=== PATIENT | male | born 1930 | race Caucasian/White ===

== ENCOUNTER 2017-02-14 18:44 | Emergency (ER) | payer MEDICARE, OTHER ==
[~2017-02-14] VITALS: Ht 15270 cm; Wt 74.8 kg
[2017-02-14 19:14] LABS: HEMATOCRIT 45.4 % (42.0-52.0); HEMOGLOBIN 15.1 g/dl (14.0-18.0); MEAN CELL VOLUME 95.8 fl (80.0-94.0); MEAN CORPUSCULAR HGB 31.9 pg (27.0-31.0); MEAN CORPUSCULAR HGB CONC 33.3 g/dl (33.0-37.0); MEAN PLATELET VOLUME 11.4 fl (9.6-12.3); PLATELET COUNT AUTOMATED 135 10*3/uL (130-400); RED BLOOD COUNT 4.74 10*6/uL (4.50-5.90); RED CELL DISTRI WIDTH 13.1 % (0-14.5)
[2017-02-14 19:28] LABS: OXYHEMOGLOBIN 87.1 % (85.0-98.0); TOTAL HGB 15.5 G/DL (13.5-18.0)
[2017-02-14 19:30] LABS: POTASSIUM 3.9 mmol/L (3.5-5.1)
[2017-02-14 19:35] LABS: TROPONIN I 3.26 ng/ml (<0.045)
[2017-02-14 19:47] LABS: LYMPHOCYTE # 0.6 10*3/uL (1.3-4.4); MONOCYTE # 1.1 10*3/uL (0.1-1.0); NEUTROPHIL # 13.4 10*3/uL (2.3-7.9); NEUTROPHILS 89 % (47-73); POLYCHROMASIA SLIGHT; TOTAL CELLS COUNTED 100 #CELLS
[2017-02-14 19:49] LABS: PLATELET SUFFICIENCY NORMAL (NORMAL)
== END 2017-02-14 20:17 | disposition short-term general hospital (02) ==
LOC: ED 18:44
PROVIDERS: Emergency Medicine
DX: R53.83 Other fatigue (principal); T58.91XA Toxic effect of carbon monoxide from unspecified source, accidental (unintentional), initial encounter; Z88.0 Allergy status to penicillin; Z88.2 Allergy status to sulfonamides; Y92.9 Unspecified place or not applicable

== ENCOUNTER → 2017-04-26 | Outpatient (CLI) | payer MEDICARE, OTHER | END | disposition home or self-care (01) | LOC: NM 00:17 | DX: M25.511 Pain in right shoulder (principal); M89.8X1 Other specified disorders of bone, shoulder ==